=== PATIENT | male | born 1955 | race Caucasian/White ===

== ENCOUNTER 2017-06-20 10:38 | Emergency (ER) | payer MEDICARE ==
[~2017-06-20] VITALS: Ht 172.7 cm; Wt 107.0 kg
[~2017-06-20 10:38] MED LIST: CLON.1 PO; FOSI20 PO; OXYC15TA PO; POTA-243 PO; SIMV20TA OR; TOPA25TA8 PO
[2017-06-20 10:51] VITALS: BP 174/84; PULSE 87; RESP 14; TEMP 98.9; O2SAT 97
[2017-06-20 10:59] VITALS: BP_SYST 147; BP_SYST 159; BP_SYST 174; BP_DIAS 77; BP_DIAS 81; BP_DIAS 84; RESP 14; RESP 16
[2017-06-20] MEDS ORDERED: HYDR25TA5 PO (11:07)
[2017-06-20] MEDS ORDERED: POTA-163 PO (11:07)
[2017-06-20] MEDS ORDERED: MULTTAB67 PO (11:07)
[2017-06-20] MEDS ORDERED: OMEGCAP PO (11:07)
[2017-06-20] MEDS ORDERED: FOSI20TA PO (11:07)
[2017-06-20] MEDS ORDERED: CLOB0.77 TOPICAL (11:07)
[2017-06-20] MEDS ORDERED: CLON0.1T PO (11:07)
[2017-06-20] MEDS ORDERED: STOO100C (11:07)
[2017-06-20] MEDS ORDERED: TOPI1TAB36 PO (11:07)
[2017-06-20] MEDS ORDERED: OXYC15TA PO (11:07)
[2017-06-20] MEDS ORDERED: NIAC500T5 PO (11:07)
[2017-06-20] MEDS ORDERED: NAPR500T PO (11:07)
[2017-06-20] MEDS ORDERED: SIMV20TA PO (11:07)
[2017-06-20] MEDS ORDERED: NYSTCRE29 TOPICAL (11:07)
[2017-06-20] MEDS ORDERED: ASPI325T PO (11:07)
[2017-06-20] MEDS ORDERED: KETOC2%T TOPICAL (11:07)
[2017-06-20] MEDS ORDERED: TEMA30CA PO (11:07)
[2017-06-20] MEDS ORDERED: SODIUM CHLOR 0.9% 1000 ML INJ 1,000 ML IV ONE (11:15)
[2017-06-20 11:30] LABS: AUTOMATED NEUTROPHIL # 5.8 TH/MM3 (1.8-7.7); BASOPHIL % 0.5 % (0.0-2.0); EOSINOPHIL # 0.1 TH/MM3 (0-0.4); EOSINOPHIL % 0.7 % (0.0-4.0); HEMATOCRIT 43.7 % (39.0-51.0); LYMPH % 18.8 % (9.0-44.0); LYMPHOCYTE # 1.4 TH/MM3 (1.0-4.8); MEAN CELL VOLUME 83.8 FL (80.0-100.0); MEAN CORPUSCULAR HEMOGLOBIN 28.1 PG (27.0-34.0); MEAN CORPUSCULAR HGB CONC 33.6 % (32.0-36.0); MONO % 4.1 % (0.0-8.0); NEUT % 75.9 % (16.0-70.0); PLATELET COUNT 194 TH/MM3 (150-450); RED BLOOD COUNT 5.22 MIL/MM3 (4.50-5.90); RED CELL DISTRIBUTION WIDTH 12.6 % (11.6-17.2); WHITE BLOOD COUNT 7.6 TH/MM3 (4.0-11.0)
--- NOTE | 2017-06-20 11:30 | PD ---
HPI Chief Complaint: Dizziness Time Seen by Provider: 10:48 Travel History International Travel<30 days: No Contact w/Intl Traveler<30days: No Traveled to known affect area: No History of Present Illness HPI 61yo M with PMH of HTN, chronic neck and back pain on oxycodone presents to the ED with c/o lightheadedness upon waking up today. States he got up and felt a little lightheaded and proceeded to cook breakfast but was still lightheaded so called his . States he took his usual pain medication this morning. Denies any fever, chest pain, sob, n/v, abdominal pain, diarrhea, focal weakness or numbness. States he had similar episode before and it was anxiety but he focused on his breathing and was still lightheaded. States he feels a little better now while lying down. States his urine has always been very yellow but no dysuria or hematuria. PFSH Past Medical History Anxiety: Yes Hypertension: Yes Medical other: Yes (chronic back pain, insomnia) Tetanus Vaccination: > 5 Years Influenza Vaccination: No Social History Alcohol Use: No Tobacco Use: No Substance Use: No Allergies-Medications (Allergen,Severity, Reaction): Coded Allergies: Influenza Virus Vaccines (Unverified Allergy, Severe, UVULA SWELLS UP, 06/20/17) NSAIDS (Non-Steroidal Anti-Inflamma (Verified Allergy, Severe, Edema, 06/20) bupropion (Verified Allergy, Unknown, 06/20/17) venlafaxine (Verified Allergy, Unknown, 06/20/17) ibuprofen (Unverified Adverse Reaction, Severe, EDEMA, 06/20/17) Reported Meds & Prescriptions Reported Meds & Active Scripts Active Reported Topiramate 50 Mg Tab 100 Mg PO HS Temazepam 30 Mg Cap 30 Mg PO HS PRN Stool Softener (Docusate Sodium) 100 Mg Cap Simvastatin 20 Mg Tab 20 Mg PO DAILY Potassium Chloride ER (Potassium Chloride) 20 Meq Tab 20 Meq PO BID Oxycodone (Oxycodone HCl) 15 Mg Tab 15 Mg PO BID PRN Nystatin-Triamcinolone 100,000-0.1 Unit/Gm Cream 1 Applic TOPICAL BID Niacin 500 Mg Tab 500 Mg PO DAILY Naproxen 500 Mg Tab 500 Mg PO BID Multiple Vitamin 1 Tab 1 Tab PO DAILY Nizoral Topical Shampoo (Ketoconazole) 2% Sham 1 Applic TOPICAL 2XWEEK Apply to scalp Hydrochlorothiazide 25 Mg Tab 25 Mg PO DAILY Fosinopril (Fosinopril Sodium) 20 Mg Tab 20 Mg PO BID [place]-3 Fish Oil/Vitamin (Fish Oil-Cholecalciferol) 1,000-1,000 Mg Cap 1 Cap PO DAILY Clonidine (Clonidine HCl) 0.1 Mg Tab 0.1 Mg PO BID Clobetasol Topical (Clobetasol Propionate) 0.05% [place] 1 Applic TOPICAL BID Aspirin 325 Mg Tab 325 Mg PO DAILY Review of Systems Except as stated in HPI: all other systems reviewed are Neg Physical Exam Narrative GENERAL: 61yo M not in distress. SKIN: Focused skin assessment warm/dry. HEAD: Atraumatic. Normocephalic. EYES: Pupils equal and round at 4mm bilaterally. EOMI. No nystagmus. ENT: No nasal bleeding or discharge. Mucous membranes pink and moist. NECK: Trachea midline. No JVD. CARDIOVASCULAR: Regular rate and rhythm. No murmur appreciated. RESPIRATORY: No accessory muscle use. Clear to auscultation. Breath sounds equal bilaterally. GASTROINTESTINAL: Abdomen soft, non-tender, nondistended. No rebound tenderness or guarding. MUSCULOSKELETAL: No obvious deformities. No clubbing. No cyanosis. No edema. NEUROLOGICAL: Awake and alert. No obvious cranial nerve deficits. Motor grossly within normal limits. Sensation intact. Normal finger to nose test. Normal speech. PSYCHIATRIC: Appropriate mood and affect; insight and judgment normal. Data Data Last Documented VS Vital Signs Date Time Temp Pulse Resp B/P (MAP) Pulse Ox O2 Delivery O2 Flow Rate FiO2 06/20/17 13:03 54 16 142/77 (98) 96 Room Air 06/20/17 10:51 98.9 Orders Orders Complete Blood Count With Diff (06/20/17 11:02) Basic Metabolic Panel (Bmp) (06/20/17 11:02) Electrocardiogram (06/20/17 ) Troponin I (06/20/17 11:02) Urinalysis - C+S If Indicated (06/20/17 11:02) Sodium Chlor 0.9% 1000 Ml Inj (Ns 1000 M (06/20/17 11:15) Magnesium (Mg) (06/20/17 11:02) Potassium Chloride (Kcl) (06/20/17 12:30) Labs Laboratory Tests Test 06/20/17 11:15 06/20/17 11:50 06/20/17 12:15 White Blood Count 7.6 TH/MM3 Red Blood Count 5.22 MIL/MM3 Hemoglobin 14.7 GM/DL Hematocrit 43.7 % Mean Corpuscular Volume 83.8 FL Mean Corpuscular Hemoglobin 28.1 PG Mean Corpuscular Hemoglobin Concent 33.6 % Red Cell Distribution Width 12.6 % Platelet Count 194 TH/MM3 Mean Platelet Volume 7.0 FL Neutrophils (%) (Auto) 75.9 % Lymphocytes (%) (Auto) 18.8 % Monocytes (%) (Auto) 4.1 % Eosinophils (%) (Auto) 0.7 % Basophils (%) (Auto) 0.5 % Neutrophils # (Auto) 5.8 TH/MM3 Lymphocytes # (Auto) 1.4 TH/MM3 Monocytes # (Auto) 0.3 TH/MM3 Eosinophils # (Auto) 0.1 TH/MM3 Basophils # (Auto) 0.0 TH/MM3 CBC Comment DIFF FINAL Differential Comment Blood Urea Nitrogen 24 MG/DL Creatinine 1.20 MG/DL Random Glucose 127 MG/DL Calcium Level 8.4 MG/DL Magnesium Level 2.3 MG/DL Sodium Level 139 MEQ/L Potassium Level 3.1 MEQ/L Chloride Level 104 MEQ/L Carbon Dioxide Level 29.2 MEQ/L Anion Gap 6 MEQ/L Estimat Glomerular Filtration Rate 61 ML/MIN Troponin I LESS THAN 0.02 NG/ML Urine Collection Type CLEAN CATCH Urine Color YELLOW Urine Turbidity CLEAR Urine pH 6.0 Urine Specific [place] 1.012 Urine Protein NEG mg/dL Urine Glucose (UA) NEG mg/dL Urine Ketones NEG mg/dL Urine Occult Blood NEG Urine Nitrite NEG Urine Bilirubin NEG Urine Leukocyte Esterase NEG Urine RBC 0-3 /hpf Urine Squamous Epithelial Cells 0-5 /hpf Microscopic Urinalysis Comment CULT NOT INDICATED Urine Collection Time 12:15 [facility] Medical Decision Making Medical Screen Exam Complete: Yes Emergency Medical Condition: Yes Interpretation(s) EKG: NSR 71bpm. Normal axis. No ST segment elevation or depression. Q waves III. QTc 414ms. Narrow QRS. Differential Diagnosis Orthostatic near syncope vs. hypoglycemia vs. dehydration vs. electrolyte abnormality Narrative Course 61yo M with lightheadedness upon waking up this morning. Orthostatic positive since there is more than 20 drop in systolic blood pressure from lying to standing. Pt given NS IVF. Labs reviewed, no leukocytosis. Mild hypokalemia at 3.1, replaced orally. BUN mildly elevated at 24. Troponin negative. Glucose 127. UA negative. Pt reevaluated at bedside and feels better. Pt is well appearing with no focal neurologic deficits. Labs and orthostatic is supporting dehydration as cause of dizziness. Will have pt follow up with PMD. Return precautions given. Diagnosis Primary Impression: Dizziness Patient Instructions: General Instructions Departure Forms: Tests/Procedures Additional Instructions: Please follow up with your primary care physician in 1-2 days. Return to the ED if symptoms worsen. Med/Other Pt SpecificInfo: No Change to Meds Disposition: 01 DISCHARGE HOME Condition: Stable Olena Rowley DO Jun 20, 2017 11:09
[2017-06-20 11:31] LABS: HEMO FLAGS DIFF FINAL
[2017-06-20 12:05] LABS: CHLORIDE 104 MEQ/L (98-107); POTASSIUM 3.1 MEQ/L (3.5-5.1); SODIUM (NA) 139 MEQ/L (136-145)
[2017-06-20 12:08] LABS: ANION GAP 6 MEQ/L (5-15); BICARBONATE 29.2 MEQ/L (21.0-32.0); BLOOD UREA NITROGEN 24 MG/DL (7-18); MAGNESIUM 2.3 MG/DL (1.5-2.5)
[2017-06-20 12:11] LABS: GLOMERULAR FILTRATION RATE 61 ML/MIN (>89)
[2017-06-20 12:26] LABS: BLOOD, URINE NEG (NEG); GLUCOSE,URINE NEG (NEG); KETONE, URINE NEG (NEG); NITRITE,URINE NEG (NEG)
[2017-06-20] MEDS ORDERED: POTASSIUM CHLORIDE 20 MEQ CONTROLLED RELEASE TAB PO ONE (12:30)
[2017-06-20 12:36] LABS: METHOD OF COLLECTION CLEAN CATCH; RBC, URINE 0-3 /hpf (0-3); URINE COLOR YELLOW (YELLW/STRAW)
[2017-06-20 12:37] LABS: COMMENT (UR) CULT NOT INDICATED; CULTURE IF INDICATED CULT NOT INDICATED; SQUAMOUS EPITHELIAL CELL URINE 0-5 /hpf (0-5)
[2017-06-20 13:03] VITALS: BP 142/77; PULSE 54; RESP 16; O2SAT 96
--- NOTE | 2017-06-21 12:29 | EKG ---
Date Performed: 06/20/2017 Time Performed: 11:10:52 PTAGE: 61 years EKG: Sinus rhythm INCOMPLETE RIGHT BUNDLE BRANCH BLOCK POSSIBLE INFERIOR MYOCARDIAL INFARCTION ABNORMAL ECG PREVIOUS TRACING : 01/19/1999 03.53 Consider inferior myocardial infarction - age indeterminate DOCTOR: Juancarlos Prieto Interpretating Date/Time 06/21/2017 12:28:49
== END 2017-06-20 13:31 | disposition home or self-care (01) ==
LOC: PHED 10:38
DX: R42 Dizziness and giddiness (principal); I10 Essential (primary) hypertension
CPT/HCPCS: 80048; 81001; 83735; 84484; 85025; 93005; 96360; 99284; J7030